=== PATIENT | female | born 1985 | race Caucasian/White ===

== ENCOUNTER → 2016-05-05 | Outpatient (CLI) | payer OTHER ==
--- NOTE | 2016-05-05 16:32 | RAD ---
Indication: Secondary to a menorrhea. Transabdominal and transvaginal sonography was performed. The uterus measures 7.6 x 5.5 x 3.6 cm. The uterus is retroverted. The endometrium is 4 mm in thickness. No uterine mass is detected. The right ovary measures 3.9 x 2.0 x 2.1 cm and the left ovary measures 3.8 x 2.0 x 1.9 cm. Normal blood flow to both ovaries is noted. No adnexal mass or free fluid is detected. Impression: Unremarkable transabdominal and transvaginal pelvic sonography.
== END | disposition home or self-care (01) ==
LOC: US 15:23
PROVIDERS: ATTEND Obstetrics & Gynecology
DX: N91.1 Secondary amenorrhea (principal); D25.9 Leiomyoma of uterus, unspecified
CPT/HCPCS: 76830; 76856

== ENCOUNTER 2020-02-07 11:19 | Emergency (ER) | payer OTHER ==
[~2020-02-07] VITALS: Ht 167.6 cm; Wt 108.0 kg
[2020-02-07] MEDS ORDERED: IV NORMAL SALINE 1000ML BAG 1,000 ML IV SCH (12:53)
--- NOTE | 2020-02-07 13:10 | PHYS DOC ---
Past Medical History Past Medical History: No Pertinent History (ABE THAO FILM OR VIDEOTAPE EDITOR) Past Surgical History: Tonsillectomy, Tubal ligation (ABE THAO FILM OR VIDEOTAPE EDITOR) Smoking Status: Current Every Day Smoker Alcohol Use: None (ABE THAO FILM OR VIDEOTAPE EDITOR) General Adult EDM: Chief Complaint: CONTISPATION HPI: HPI: Patient is a 34 year old female who presents with constipation for the last 7 days. She states yesterday she began vomiting everything that she eats or drinks. She states she went to urgent care yesterday and they told her to take Ducolax and she has not had a bowel movement. Patient is a supervisor ordnance truck installation. Patient denies abdominal pain, diarrhea, chest pain, shortness of air, headache, dizziness, focal weakness, numbness or tingling. She is a smoker but states she has no other past medical history. (ABE THAO FILM OR VIDEOTAPE EDITOR) Review of Systems: Review of Systems: Constitutional: Denies fever or chills. [] Eyes: Denies change in visual acuity. [] HENT: Denies nasal congestion or sore throat. [] Respiratory: Denies cough or shortness of breath. [] Cardiovascular: Denies chest pain or edema. [] GI: Denies abdominal pain, nausea. + vomiting, denies bloody stools or diarrhea. + Constipation [] : Denies dysuria. [] Musculoskeletal: Denies back pain or joint pain. [] Integument: Denies rash. [] Neurologic: Denies headache, focal weakness or sensory changes. [] Endocrine: Denies polyuria or polydipsia. [] Lymphatic: Denies swollen glands. [] Psychiatric: Denies depression or anxiety. [] (ABE THAO FILM OR VIDEOTAPE EDITOR) Heart Score: Risk Factors: Risk Factors: DM, Current or recent (<one month) smoker, HTN, HLP, family history of CAD, obesity. Risk Scores: Score 0 - 3: 2.5% MACE over next 6 weeks - Discharge Home Score 4 - 6: 20.3% MACE over next 6 weeks - Admit for Clinical Observation Score 7 - 10: 72.7% MACE over next 6 weeks - Early Invasive Strategies (ABE THAO FILM OR VIDEOTAPE EDITOR) Current Medications: Current Medications Medications (Trade) Dose Ordered Sig/Stephen Start Time Stop Time Status Last Admin Dose Admin Sodium Chloride 1,000 ml @ 1,000 mls/hr Q1H 02/07/20 12:53 02/07/20 13:52 (RJABE M FILM OR VIDEOTAPE EDITOR) Allergies: Allergies: Allergies Coded Allergies Type Severity Reaction Last Updated Verified No Known Drug Allergies 02/07/20 No (RJABE M FILM OR VIDEOTAPE EDITOR) Physical Exam: PE: Constitutional: Well developed, well nourished, no acute distress, non-toxic appearance. [] HENT: Normocephalic, atraumatic, bilateral external ears normal, oropharynx moist, no oral exudates, nose normal. [] Eyes: PERRLA, EOMI, conjunctiva normal, no discharge. [] Neck: Normal range of motion, no tenderness, supple, no stridor. [] Cardiovascular:Heart rate regular rhythm, no murmur [] Lungs & Thorax: Bilateral breath sounds clear to auscultation [] Abdomen: Bowel sounds normal, soft but distended, no tenderness, no masses, no pulsatile masses. [] Skin: Warm, dry, no erythema, no rash. [] Back: No tenderness, no CVA tenderness. [] Extremities: No tenderness, no cyanosis, no clubbing, ROM intact, no edema. [] Neurologic: Alert and oriented X 3, normal motor function, normal sensory function, no focal deficits noted. [] Psychologic: Affect normal, judgement normal, mood normal. [] (ABE THAO APRN) Current Patient Data: Vital Signs: Vital Signs Date Time Temp Pulse Resp B/P (MAP) Pulse Ox O2 Delivery O2 Flow Rate FiO2 02/07/20 12:43 99.4 76 16 137/86 (103) 99 Room Air 99.4 ([facility]APE EDIT[facility]) EKG: EKG: [] [facility] Radiology/Procedures: Radiology/Procedures: [] Impression: [facility] [address] [place] [address] IMAGING REPORT Signed PATIENT: RAVEN ACEVES ACCOUNT: [id number] : 1985 LOCATION: ER AGE: 34 SEX: F EXAM STATUS: REG ER ORD. PHYSICIAN: ABE THAO APRN REASON: constipation, vomiting PROCEDURE: CT ABD PELV W/ IV CONTRST ONLY EXAM: CT Abdomen and Pelvis with IV contrast INDICATION: Reason: constipation, vomiting / Spl. Instructions: IV OMNI 300 75 MLS / History: TECHNIQUE: Multi-detector row CT images were acquired from the lung bases through the abdomen and pelvis with the use of IV contrast. Sagittal and coronal images were acquired from the transaxial data. All CT scans performed at this facility utilize dose optimization techniques as appropriate to the exam, including the following: Automated exposure control and adjustment of the mA and/or KV according to patient size (this includes techniques or standardized protocols for targeted exams where dose is indication/reason for exam). IV CONTRAST: Administered ORAL CONTRAST: Not administered COMPARISON: None FINDINGS: LOWER CHEST: Unremarkable LIVER: Unremarkable BILIARY SYSTEM: Gallbladder is unremarkable. Bile ducts are not dilated. PANCREAS: Unremarkable SPLEEN: Unremarkable ADRENALS: Unremarkable KIDNEYS & URETERS: A 2 cm cyst in the midpole left kidney requires no additional imaging follow-up. Kidneys otherwise are unremarkable. BLADDER: Unremarkable REPRODUCTIVE ORGANS: 1.6 cm left adnexal ring-enhancing structure is compatible with a corpus luteum. Otherwise unremarkable GASTROINTESTINAL: The distal large bowel is collapsed. Otherwise stomach, small bowel and large bowel are unremarkable.. The appendix is normal. MESENTERY/PERITONEUM/RETROPERITONEUM: Unremarkable VASCULAR: Circumaortic left renal vein. LYMPH NODES: No adenopathy OSSEOUS & SOFT TISSUES: Unremarkable IMPRESSION: No acute findings on abdomen and pelvis CT. No specific cause for patient's symptoms of vomiting and constipation identified. Electronically signed by: Kyle Andre MD (02/07/2020 2:08 PM) [id number] DICTATED and SIGNED BY: KYLE ANDRE MD DATE: 02/07/20 1408 (ABE THAO APRN) Course & Med Decision Making: Course & Med Decision Making Pertinent Labs and Imaging studies reviewed. (See chart for details) COVID-19 CRITERIA: The patient was evaluated during the global COVID-19 pandemic, and that diagnosis was suspected/considered upon their initial presentation. Their evaluation, treatment and testing was consistent with current guidelines for patients who present with complaints or symptoms that may be related to COVID-19. See HPI. Abdomen is distended but soft and nontender. Speaks in full clear sentences. Ambulatory with steady gait. Vital signs are within normal limits. No extremity edema. Lungs are clear to auscultation all lobes. Patient's temp was 99.8 when she arrived patient denies fevers. CT shows no acute findings. Does not show constipation. Urinalysis shows no infection. Blood work is unremarkable. Chest x-ray read by Dr. Dodson shows no acute findings. Patient is tested for Covid. She to follow-up with her primary care physician. [] (ABE THAO APRN) Dragon Disclaimer: Dragon Disclaimer: This electronic medical record was generated, in whole or in part, using a voice recognition dictation system. (ABE THAO APRN) COVID-19 Patient Risks: Age 65 or older: No Sign of co-morbidity: Yes Exp to person + for COVID: No Exp to PUI: No Travel from affected area: Yes Lower respiratory symptoms: No Fever: No Other: Yes (nausea, vomitng) (ABE THAO APRN) PPE Use: Full PPE with N95 mask or PAPR: Yes (ABE THAO APRN) Departure Departure Impression: Primary Impression: Nausea & vomiting Qualified Codes: R11.2 - Nausea with vomiting, unspecified Additional Impression: Person under investigation for COVID-19 Disposition: 01 DC HOME SELF CARE/HOMELESS Condition: STABLE Referrals: SANDEEP HICKMAN APRN (PCP) Patient Instructions: Nausea and Vomiting Additional Instructions: Follow-up with primary care physician. Drink plenty of fluids. Take medication as prescribed. You have been tested for or diagnosed with COVID-19. It is an infection caused by a new type of coronavirus. COVID-19 will cause cold-like or mild flu symptoms in most. It can cause more severe symptoms like problems breathing in some. There is no treatment for COVID-19. The body will clear the infection over time. Self-care will help to ease discomfort. Steps to Take: Self-Care Rest as needed. Healthy habits may help you feel better. Steps include: Choose healthy foods including fruits and vegetables. Drink water throughout the day. Get plenty of sleep each night. If you smoke, try to quit. It may ease breathing. Avoid alcohol. Keep Others Healthy The virus can spread to others. Droplets are released every time you sneeze or cough. The droplets can get into the mouth, nose, or eyes of people near you and lead to infection. To lower the chances of spreading COVID-19 to others: Stay at home until your doctor has said it is safe to leave. If you tested positive this will mean staying isolated until both of the following are true: At least 7 days have passed since the start of illness. You are free of fever for at least 72 hours without the use of medicine. During this time: - Avoid public areas, events, or transportation. Do not return to work or school until your doctor has said it is safe to do so. - Call ahead if you need to go to a medical center. Let them know you may have COVID-19. It will help them guide you where to go. They may also ask you to wear a facemask when you come to the office. - If you call for emergency medical services, let them know you may have COVID- 19. While at home: - Try to avoid close contact with others. Stay about 6 feet away. - If possible, spend most of your time in a separate room from others. - Use a face mask if you will be in close contact with others such as sharing a room or vehicle. - Have someone wipe down common surfaces in the home. Use household pocket maker every day on areas like doorknobs, counters, or sinks. - Cough or sneeze into a tissue. Throw the tissue away right after use. If a tissue is not available, cough or sneeze into your elbow. - Wash your hands often. Wash them after sneezing or coughing. Use soap and water and wash for at least 20 seconds. Alcohol based hand bakeshop cleaner can be used if soap and water is not available. - Do not prepare food for others. Avoid sharing personal items like forks, spoons, or toothbrushes. - Avoid close contact with pets while you are sick. There is no evidence of the virus passing to pets. This is a safety step until more is known about this virus. Isolation can be frustrating. Social interaction can help. Keep in touch with friends and family through phone and tech options. You can still interact with others in your home, just keep a safe distance of about 6 feet. Follow-up: Your doctors office will check in with you to see if there are any changes in your health. You may be asked to keep track of symptoms to share with them. They will also let you know when you are clear to be in public again. Problems to Look Out For: Contact your doctor if your recovery is not going as you expect. Get emergency care if you have problems such as: - Trouble breathing - Nonstop chest pain or pressure - Changes in awareness, confusion, or problems waking - Lips or face have bluish color - Worsening of symptoms If you think you have an emergency, call for emergency medical services right away. As taken from [facility] Ondansetron (ONDANSETRON ODT) 4 Mg Tab.rapdis 1 TAB PO PRN Q6-8HRS, #16 TAB Prov: ABE THAO APRN 02/07/20 Attending Signature Attending Signature I have reviewed the PA/SAFETY BELT INSTALLER's note and plan of care. I was available for consultation as needed during the patient's visit in the emergency department. I agree with the clinical impression, plan, and disposition. (PELON DODSON DO) ABE THAO APRN Feb 07, 2020 13:10 PELON DODSON DO Feb 07, 2020 18:43
[2020-02-07 13:24] LABS: BASO # 0.1 x10^3/uL (0.0-0.2); BASO % 1 % (0-3); EOS % 1 % (0-3); HEMOGLOBIN 14.5 g/dL (12.0-15.5); LYMPH # 2.5 x10^3/uL (1.0-4.8); LYMPH % 32 % (24-48); MEAN CORPUSCULAR HEMOGLOBIN 31 pg (25-35); MEAN CORPUSCULAR HGB CONC 35 g/dL (31-37); MEAN CORPUSCULAR VOLUME 89 fL (79-100); MONO # 0.5 x10^3/uL (0.0-1.1); MONO % 6 % (0-9); NEUT # 4.7 x10^3/uL (1.8-7.7); NEUT % 60 % (31-73); PLATELET COUNT 322 x10^3/uL (140-400); RED BLOOD COUNT 4.72 x10^6/uL (3.50-5.40); RED CELL DISTRIBUTION WIDTH 14.2 % (11.5-14.5); WHITE BLOOD COUNT 7.9 x10^3/uL (4.0-11.0)
[2020-02-07 13:38] LABS: CALCIUM 8.8 mg/dL (8.5-10.1); GFR 63.1; POTASSIUM 4.2 mmol/L (3.5-5.1)
[2020-02-07 13:43] LABS: BILIRUBIN,URINE NEGATIVE (NEG); CLARITY,URINE CLEAR; COLOR,URINE YELLOW; NITRITE,URINE NEGATIVE (NEG); PH,URINE 7.5 (<5.0-8.0); PROTEIN,URINE NEGATIVE (NEG-TRACE); UROBILINOGEN,URINE 0.2 mg/dL (0.2 mg/dL)
[2020-02-07 13:44] LABS: ALBUMIN 3.4 g/dL (3.4-5.0); ALBUMIN/GLOBULIN RATIO 0.9 (1.0-1.7); TOTAL BILIRUBIN 0.3 mg/dL (0.2-1.0); TOTAL PROTEIN 7.2 g/dL (6.4-8.2)
[2020-02-07 13:46] LABS: U PREG PATIENT NEGATIVE (NEG)
[2020-02-07 13:51] LABS: BACTERIA,URINE MODERATE /HPF (0-FEW); RBC,URINE 0 /HPF (0-2); WBC,URINE OCC /HPF (0-4)
[2020-02-07] MEDS ORDERED: IOHEXOL 300 MG/ML 100ML VIAL. IV ONE (14:00)
--- NOTE | 2020-02-07 14:10 | RAD ---
EXAM: CT Abdomen and Pelvis with IV contrast INDICATION: Reason: constipation, vomiting / Spl. Instructions: IV OMNI 300 75 MLS / History: TECHNIQUE: Multi-detector row CT images were acquired from the lung bases through the abdomen and pelvis with the use of IV contrast. Sagittal and coronal images were acquired from the transaxial data. All CT scans performed at this facility utilize dose optimization techniques as appropriate to the exam, including the following: Automated exposure control and adjustment of the mA and/or KV according to patient size (this includes techniques or standardized protocols for targeted exams where dose is indication/reason for exam). IV CONTRAST: Administered ORAL CONTRAST: Not administered COMPARISON: None FINDINGS: LOWER CHEST: Unremarkable LIVER: Unremarkable BILIARY SYSTEM: Gallbladder is unremarkable. Bile ducts are not dilated. PANCREAS: Unremarkable SPLEEN: Unremarkable ADRENALS: Unremarkable KIDNEYS & URETERS: A 2 cm cyst in the midpole left kidney requires no additional imaging follow-up. Kidneys otherwise are unremarkable. BLADDER: Unremarkable REPRODUCTIVE ORGANS: 1.6 cm left adnexal ring-enhancing structure is compatible with a corpus luteum. Otherwise unremarkable GASTROINTESTINAL: The distal large bowel is collapsed. Otherwise stomach, small bowel and large bowel are unremarkable.. The appendix is normal. MESENTERY/PERITONEUM/RETROPERITONEUM: Unremarkable VASCULAR: Circumaortic left renal vein. LYMPH NODES: No adenopathy OSSEOUS & SOFT TISSUES: Unremarkable IMPRESSION: No acute findings on abdomen and pelvis CT. No specific cause for patient's symptoms of vomiting and constipation identified. Electronically signed by: Jane Andre MD (02/07/2020 2:08 PM) [id number]
[2020-02-07] MEDS ORDERED: ONDA4TAB12 PO (14:30)
[2020-02-07 14:58] VITALS: BP 116/67
--- NOTE | 2020-02-07 15:35 | RAD ---
Single view of the chest. 02/07/2020 2:40 PM Indication: Reason: vomiting PUI / Spl. Instructions: / History: Comparison: None Findings: There is no focal consolidation. There is no pleural effusion or pneumothorax. The cardiomediastinal silhouette and pulmonary vasculature are within normal limits. No acute osseous abnormalities are seen. Impression: No evidence of acute cardiopulmonary process. Electronically signed by: Jovanni Villalobos MD (02/07/2020 3:32 PM) [id number]
--- NOTE | 2020-02-08 12:08 | NUR ---
IP: Informed pt of negative COVID test. Pt verbalized understanding.
== END 2020-02-07 15:45 | disposition home or self-care (01) ==
LOC: ER 11:19
DX: R11.2 Nausea with vomiting, unspecified (principal); Z20.828 Contact with and (suspected) exposure to other viral communicable diseases; K59.00 Constipation, unspecified; F17.200 Nicotine dependence, unspecified, uncomplicated; Z98.51 Tubal ligation status
CPT/HCPCS: 36415; 71045; 74177; 80053; 81001; 81025; 83690; 85025; 87086; 96360; 99285; C9803; J7030; Q9967; U0003